=== PATIENT | female | born 1985 | race American Indian/Alaskan Native ===

== ENCOUNTER 2016-06-16 10:55 | Inpatient (IN) | payer MEDICAID ==
--- NOTE | 2016-06-16 12:12 | History and Physical Report ---
History of Present Illness Date of examination: 06/16/16 Date of admission: 06/16/16 12:04 Chief complaint: 30 yo at 38 weeks in active labor History of present illness: Prental care at [facility] since EGA of 6.2 weeks. Co managed with [facility] for history of PTD. GBS positive. Desires tubal ligation. 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 Family/Genetic History: diabetes, hypertension Social history: - Obstetrical History Expected Date of Delivery: 06/28/16 Actual Gestation: 38 Week(s) 2 Day(s) : 6 Para: 3 Hx # Term Pregnancies: 2 Number of Pregnancies: 1 Spontaneous Abortions: 2 Number of Living Children: 3 Medications and Allergies Allergies Allergy/AdvReac Type Severity Reaction Status Date / Time acetaminophen [From Percocet] AdvReac Itching Verified 06/16/16 11:56 oxycodone HCl [From Percocet] AdvReac Itching Verified 06/16/16 11:56 Review of Systems All systems: negative - Vital Signs Vital signs: Vital Signs Pulse BP Pulse Ox 86 118/66 80 L 06/16/16 11:28 06/16/16 11:28 06/16/16 11:28 Temp Pulse Resp BP Pulse Ox 96 H 118/66 98 06/16/16 12:03 06/16/16 11:28 06/16/16 12:03 - Physical Exam Cardiovascular: Regular rate Lungs: Positive: Normal air movement Abdomen: Positive: soft, normal bowel sounds Genitourinary (Female): Positive: normal external genitalia Vagina: Positive: normal moisture Uterus: Positive: enlarged, normal contour Extremities: Positive: normal Deep Tendon Reflex Grade: Normal +2 - Obstetrical FHR: category 1 Uterine Contraction Monitor Mode: External Cervical Dilatation: 4 Cervical Effacement Percentage: 80 station: -1 Uterine Contraction Pattern: Regular Uterine Tone Measurement Phase: Resting Uterine Contraction Intensity: Moderate Results All other labs normal. Assessment and Plan A: IUP @38.2 weeks with painful uterine contractions Category 1 heart tracing Contraction q2-5 minutes GBS positive P: Routine labor management Continuous monitoring AROM Epidural for pain management Expect vaginal delivery
[2016-06-16] MEDS ORDERED: MINERAL OIL PO PRN (12:23)
[2016-06-16] MEDS ORDERED: ePHEDrine SULFATE IV PRN ×2 (12:23→15:02)
[2016-06-16] MEDS ORDERED: BRETHINE SUB-Q PRN (12:23)
[2016-06-16] MEDS ORDERED: POLYCILLIN/NS 2 GM/100 ML 2 GM/100 ML BAG IV ONE (12:23)
[2016-06-16] MEDS ORDERED: ZOFRAN IV PRN (12:23)
[2016-06-16] MEDS ORDERED: BRETHINE IVP PRN (12:23)
[2016-06-16] MEDS ORDERED: LACTATED RINGERS 1,000 ML IV SCH (13:00)
[2016-06-16] MEDS ORDERED: PITOCin/NS 20 UNIT/1000ML DRIP 20,000 MILLIUNITS/1,000 ML BAG IV SCH (13:00)
[2016-06-16] MEDS ORDERED: PITOCin/NS 30 UNIT/500ML 30,000 MILLIUNITS/500 ML BAG IV SCH ×2 (13:00)
[2016-06-16] MEDS: SUBLIMAZE IV PRN ×2 (13:15→14:30)
[2016-06-16 13:25] LABS: Hematocrit 42.8 % (30.3-42.9); Hemoglobin 13.7 gm/dl (10.1-14.3); Mean Corpuscular HGB Conc 32 % (30-34); Mean Corpuscular Hemoglobin 28 pg (28-32); Mean Corpuscular Volume 86 fl (79-97); Platelet Count 251 K/mm3 (140-440); Red Blood Count 4.95 M/mm3 (3.65-5.03); Red Cell Distribution Width 13.6 % (13.2-15.2); White Blood Count 9.6 K/mm3 (4.5-11.0)
[2016-06-16] MEDS ORDERED: fentaNYL-BUPIV 2 MCG/ML-0.125% 200 MCG/100 ML BAG EPIDURAL ONE (14:38)
--- NOTE | 2016-06-16 15:00 | Progress Note ---
Assessment and Plan A: IUP @38.2 in active labor Comfortable with epidural SVE: 680/-1 Category 1 tracing GBS positive P: Routine care AROM 1445 (moderate amount of brown/bloody fluid with no odor) Continue pitocin augmentation and continuous monitoring GBS prophylaxis Expect Subjective - Subjective Date of service: 06/16/16 Principal diagnosis: Active labor at 38.2 weeks Interval history: Prental care at [facility] since EGA of 6.2 weeks. Co managed with [facility] for history of PTD. GBS positive. Desires tubal ligation. Objective - Vital Signs Vital Signs: Vital Signs - 12hr 06/16/16 06/16/16 06/16/16 11:28 11:29 11:33 Temperature Pulse Rate 86 101 H 101 H Respiratory Rate Blood Pressure 118/66 O2 Sat by Pulse 80 L 81 L 98 Oximetry 06/16/16 06/16/16 06/16/16 11:38 11:43 11:48 Temperature Pulse Rate 96 H 95 H 91 H Respiratory Rate Blood Pressure O2 Sat by Pulse 98 97 96 Oximetry 06/16/16 06/16/16 06/16/16 11:53 11:58 12:03 Temperature Pulse Rate 111 H 101 H 96 H Respiratory Rate Blood Pressure O2 Sat by Pulse 96 98 98 Oximetry 06/16/16 06/16/16 06/16/16 12:08 12:09 13:22 Temperature Pulse Rate 93 H 93 H 104 H Respiratory Rate Blood Pressure 119/69 O2 Sat by Pulse 98 86 Oximetry 06/16/16 06/16/16 06/16/16 13:23 14:30 14:36 Temperature 99.9 F H Pulse Rate 105 H 112 H Respiratory 16 Rate Blood Pressure O2 Sat by Pulse 92 87 Oximetry 06/16/16 06/16/16 14:45 14:46 Temperature Pulse Rate 103 H 100 H Respiratory Rate Blood Pressure 92/52 94/53 O2 Sat by Pulse Oximetry - Exam Cardiovascular: Regular rate Lungs: Normal air movement Abdomen: Present: soft FHR: category 1 FHR comments: 130s Uterine Contraction Monitor Mode: External Cervical Dilatation: 6 Cervical Effacement Percentage: 80 station: -1 Uterine Contraction Frequency (min): q2-3 Uterine Contraction Pattern: Regular Uterine Tone Measurement Phase: Resting Uterine Contraction Intensity: Strong/Firm Deep Tendon Reflex Grade: Normal +2 - Labs Labs: Laboratory Results - last 24 hr 06/16/16 06/16/16 13:00 13:00 WBC 9.6 RBC 4.95 Hgb 13.7 Hct 42.8 MCV 86 MCH 28 MCHC 32 RDW 13.6 Plt Count 251 Blood Type O POSITIVE Antibody Screen Negative
[2016-06-16] MEDS ORDERED: NARCAN 2 MG/2 ML IV PRN (15:02)
--- NOTE | 2016-06-16 15:02 | Anesthesia Consultation ---
Anesthesia Consult and Med Hx Date of service: 06/16/16 - Airway Anesthetic Teeth Evaluation: Good ROM Head & Neck: Adequate Mental/Hyoid Distance: Adequate Intubation Access Assessment: Probably Good - Pre-Operative Health Status ASA Pre-Surgery Classification: ASA2, Emergency Proposed Anesthetic Plan: Epidural, Spinal - Pulmonary Hx Asthma: No COPD: No Hx Pneumonia: No - Cardiovascular System Hx Hypertension: No - Central Nervous System Hx Seizures: No Hx Psychiatric Problems: No - Endocrine Hx Renal Disease: No Hx End Stage Renal Disease: No Hx Hypothyroidism: No Hx Hyperthyroidism: No - Hematic Hx Anemia: No Hx Sickle Cell Disease: No - Other Systems Hx Alcohol Use: No
[2016-06-16] MEDS ORDERED: fentaNYL-BUPIV 2 MCG/ML-0.125% 2 MCG/1 ML BAG EPIDURAL SCH (16:00)
[2016-06-16] MEDS ORDERED: BENADRYL PO PRN (16:19)
[2016-06-16] MEDS ORDERED: MILK OF MAGNESIA PO PRN (16:19)
[2016-06-16] MEDS ORDERED: TUCKS PAD TP PRN (16:19)
[2016-06-16] MEDS ORDERED: DERMOPLAST TP PRN (16:19)
[2016-06-16] MEDS ORDERED: DULCOLAX PR PRN (16:19)
[2016-06-16] MEDS ORDERED: LANSINOH TP PRN (16:19)
[2016-06-16] MEDS ORDERED: PHENERGAN PO PRN (16:19)
[2016-06-16] MEDS ORDERED: POLYCILLIN/NS 1 GM/50 ML 1 GM/50 ML BAG IV SCH (16:25)
[2016-06-16] MEDS ORDERED: SODIUM CHLORIDE FLUSH SYRINGE 10 ML IV NR (17:00)
--- NOTE | 2016-06-16 17:00 | Procedure Note ---
OB Delivery Note - Delivery Date of Delivery: 06/16/16 (1614) Surgeon: LENNY SALGADO Estimated blood loss: 300cc - Vaginal Delivery position: OP Intrapartum events: none Delivery induction: none Delivery augmentation: rupture of membranes, pitocin Delivery monitor: external FHT, external uterine Route of delivery: Delivery placenta: manual, uterine exploration Delivery cord: nuchal cord, 3 umbilical vessels Delivery laceration: none Anesthesia: epidural Delivery comments: Baby girl Walker was delivered direct OP on 06/16/16 @ 1614 pm over an intact perineum with nuchal cord x 1. Baby responded well to drying and stimulation and was placed on mom's chest. Cord was clamped at 4 minutes of life and cut by FOB. Placenta was manually removed after almost 30 minutes in several pieces. Calcifications noted. Uterus was manually explored for fragments. Fundus firm and below midline with minimal bleeding. EBL 300cc. Mom and baby were bonding and doing well. - Infant A at 1 minute: 8 at 5 minutes: 9 Infant Gender: Female
[2016-06-16] MEDS: MOTRIN PO SCH ×2 (19:27→23:00)
[2016-06-16] MEDS: NORCO 5/325 PO PRN (21:35)
[2016-06-17 03:23] LABS: Hematocrit 35.9 % (30.3-42.9); Hemoglobin 11.6 gm/dl (10.1-14.3)
[2016-06-17] MEDS: MOTRIN PO SCH ×4 (06:22→23:03)
[2016-06-17] MEDS: NORCO 5/325 PO PRN ×5 (06:22→23:03)
--- NOTE | 2016-06-17 09:05 | Progress Note ---
Assessment and Plan A: PPD 1 after and manually removed placenta Pain not well controlled well Voiding, eating, ambulating well P: Routine care Ultrasound of uterus to r/o retained placenta Plan for d/c tomorrow if patient tolerates. Subjective - Subjective Date of service: 06/17/16 Principal diagnosis: PPD #1 Interval history: Prental care at [facility] since EGA of 6.2 weeks. Co managed with [facility] for history of PTD. GBS positive. Desires tubal ligation. Patient reports: appetite normal, voiding normally, pain poorly controlled ( Complaints of abdominal pain 10/), ambulating normally [place]: doing well Objective - Vital Signs Latest vital signs: Vital Signs Temp Pulse Pulse Resp BP BP Pulse Ox 06/17/16 07:40 98.7 F 88 20 104/54 06/17/16 06:22 18 06/17/16 04:30 98.3 F 97 H 20 109/69 06/17/16 00:20 98.5 F 94 H 18 123/61 06/16/16 21:35 18 06/16/16 18:20 98.1 F 88 18 120/59 06/16/16 18:01 82 114/68 06/16/16 17:46 99 H 117/78 06/16/16 17:31 90 114/75 06/16/16 17:16 98 H 119/81 06/16/16 17:01 106 H 116/76 06/16/16 17:00 16 06/16/16 16:46 111 H 109/56 06/16/16 15:43 104 H 92 06/16/16 15:38 108 H 87 06/16/16 15:33 104 H 136/92 80 L 06/16/16 15:24 119 H 86 06/16/16 15:23 60 L 06/16/16 15:19 109 H 83 L 06/16/16 15:16 26 L 06/16/16 15:14 106 H 87 06/16/16 15:09 100 H 87 06/16/16 15:04 89 86 06/16/16 14:59 101 H 114/63 87 06/16/16 14:46 100 H 94/53 06/16/16 14:45 103 H 92/52 06/16/16 14:36 112 H 87 06/16/16 14:30 105 H 92 06/16/16 13:23 99.9 F H 16 06/16/16 13:22 104 H 119/69 06/16/16 12:09 93 H 86 06/16/16 12:08 93 H 98 06/16/16 12:03 96 H 98 06/16/16 11:58 101 H 98 06/16/16 11:53 111 H 96 06/16/16 11:48 91 H 96 06/16/16 11:43 95 H 97 06/16/16 11:38 96 H 98 06/16/16 11:33 101 H 98 06/16/16 11:29 101 H 81 L 06/16/16 11:28 86 118/66 80 L Intake and Output 06/16/16 06/17/16 06/17/16 22:59 06:59 14:59 Intake Total 860 485 Output Total 1150 Balance -290 485 Intake: IV 500 125 PITOCin/NS 20 UNIT/1000ML 500 125 DRIP 20,000 milliunits In 1,000 ml @ 125 mls/hr IV DIRECT KELBY Rx#: [id number] Oral 120 240 Intake, Free Water 240 120 Output: Urine 1150 Indwelling Catheter 400 Void 750 Other: Total, Intake Amount 120 240 Total, Output Amount 500 # Voids Void 1 1 Estimated Blood Loss 300 - Exam Cardiovascular: Present: Regular rate Lungs: Present: Normal air movement Abdomen: Present: soft, normal bowel sounds Vulva: both: normal (lochia minimal) Uterus: Present: firm, tenderness, fundal height above umbilicus Extremities: Present: normal Deep Tendon Reflex Grade: Normal +2
--- NOTE | 2016-06-17 09:34 | Progress Note ---
Subjective Date of service: 06/17/16 Principal diagnosis: PPD #1 Interval history: 1st day after normal vaginal delivery Patient is in the bed, comfortable. Pain is well controlled with pain meds. Ambulated well. No residual neurological deficit. No anesthesia complications Objective - Constitutional Vitals: Vital Signs - 12hr 06/16/16 06/17/16 06/17/16 21:35 00:20 04:30 Temperature 98.5 F 98.3 F Pulse Rate [ 94 H 97 H Right Radial] Respiratory 18 18 20 Rate Blood Pressure 123/61 109/69 [Right Arm] 06/17/16 06/17/16 06:22 07:40 Temperature 98.7 F Pulse Rate [ 88 Right Radial] Respiratory 18 20 Rate Blood Pressure 104/54 [Right Arm] - Labs CBC & Chem 7: 06/17/16 03:10
--- NOTE | 2016-06-17 15:32 | Ultrasound Report ---
ULTRASOUND PELVIC COMPLETE ULTRASOUND TRANSVAGINAL HISTORY: Vaginal bleeding, evaluate for retained products of conception. TECHNIQUE: Transabdominal and transvaginal ultrasound with color and spectral doppler interrogation. The uterus is markedly enlarged measuring 23 x 8 x 13 cm. No uterine mass is appreciated. The endometrial stripe is poorly visualized on this exam. The endometrial stripe appears to measure between 1.3 and 2.7 cm. There is a small amount of endometrial fluid. Retained products of conception cannot be excluded. No findings consistent with endometritis. The right ovary measures 2.7 x 1.9 x 1.7 cm. The left ovary measures 3.4 x 1.9 x 3.3 cm. No adnexal cyst or mass. No pelvic fluid collection. IMPRESSION: Thickened endometrium as detailed above. Retained products cannot be excluded.
[2016-06-18] MEDS: NORCO 5/325 PO PRN ×2 (05:31→10:25)
[2016-06-18] MEDS: MOTRIN PO SCH ×2 (05:31→12:15)
--- NOTE | 2016-06-18 09:12 | Progress Note ---
Assessment and Plan A: PPD2 s/p with manually removed placenta Pain well controlled well P: Routine care D/C home today Depo before discharge Subjective - Subjective Date of service: 06/18/16 Principal diagnosis: PPD #2 Interval history: Prental care at [facility] since EGA of 6.2 weeks. Co managed with [facility] for history of PTD. GBS positive. Desires tubal ligation. Patient reports: appetite normal, voiding normally, pain well controlled : doing well Objective - Vital Signs Latest vital signs: Vital Signs Temp Pulse Resp BP 06/18/16 07:35 98.3 F 84 20 110/74 06/18/16 00:00 98.9 F 76 20 122/73 06/17/16 16:07 98.2 F 88 20 130/90 Intake and Output 06/17/16 06/18/16 06/18/16 22:59 06:59 14:59 Intake Total 480 Balance 480 Intake: Oral 480 Other: Total, Intake Amount 240 # Voids Void 1 1 - Exam Cardiovascular: Present: Regular rate Lungs: Present: Normal air movement Abdomen: Present: soft, normal bowel sounds Uterus: Present: normal, firm, fundal height at umbilicus Extremities: Present: normal Deep Tendon Reflex Grade: Normal +2
--- NOTE | 2016-06-18 09:50 | Discharge Summary ---
Providers - Providers Date of Admission: 06/16/16 12:04 Date of discharge: 06/18/16 Attending physician: KAL BURTON MD Primary care physician: KAL BURTON MD Hospitalization Reason for admission: active labor Delivery: Procedure details: Manual extraction of placenta Laceration: none complications: none Discharge diagnosis: IUP at term delivered baby: female Hospital course: US for pain with increased fundal height. Pain resolved. Condition at discharge: Good Disposition: DISCHARGED TO HOME OR SELFCARE Plan - Provider Discharge Summary Activity: routine, no sex for 6 weeks, no heavy lifting 4 weeks, no strenuous exercise Diet: routine Instructions: routine Additional instructions: [] Smoking cessation referral if applicable(refer to patient education folder for contact #) [] Refer to [facility]'s [facility] Booklet Call your doctor immediately for: * Fever > 100.5 * Heavy vaginal bleeding ( >1 pad per hour) * Severe persistent headache * Shortness of breath * Reddened, hot, painful area to leg or breast * Drainage or odor from incision. * Keep incision clean and dry at all times and follow doctor's instructions regarding bathing/showering - Follow up plan Follow up: [facility] [Provider Group] - 6 Weeks
[2016-06-18] MEDS ORDERED: DEPO-PROVERA (CONTRACEPTION) IM ONE (11:00)
[2016-06-18 17:39] VITALS: BP 118/74
== END 2016-06-18 17:10 | disposition home or self-care (01) | DRG 775 ==
LOC: TRG 10:55 → LD 12:04 → OB 18:08
PROVIDERS: ADMIT Obstetrics & Gynecology; ATTEND Obstetrics & Gynecology
PROC: 10E0XZZ Delivery of Products of Conception, External Approach (ICD-10-PCS; principal; 2016-06-16)
PROC: 10907ZC Drainage of Amniotic Fluid, Therapeutic from Products of Conception, Via Natural or Artificial Opening (ICD-10-PCS; 2016-06-16)
PROC: 00HU33Z Insertion of Infusion Device into Spinal Canal, Percutaneous Approach (ICD-10-PCS; 2016-06-16)
PROC: 3E0R3CZ (ICD-10-PCS; 2016-06-16)
DX: O69.81X0 Labor and delivery complicated by cord around neck, without compression, not applicable or unspecified (principal); O99.824 Streptococcus B carrier state complicating childbirth; Z88.8 Allergy status to other drugs, medicaments and biological substances; Z83.3 Family history of diabetes mellitus; Z82.49 Family history of ischemic heart disease and other diseases of the circulatory system; Z37.0 Single live birth; Z3A.38 38 weeks gestation of pregnancy
CPT/HCPCS: 36415; 76830; 76856; 85014; 85018; 85027; 86850; 86900; 86901; 88307; 99211; G0463; J0290; J1050; J2590; J3010; J7120

== ENCOUNTER 2019-10-25 10:06 | Emergency (ER) | payer MEDICAID ==
--- NOTE | 2019-10-25 11:46 | Event Note ---
ED Screening Note Date of service: 10/25/19 Time: 11:45 ED Screening Note: 5-week patient presents via referral from [facility] to rule out ectopic Patient is following Dr. Joy who She states she had Cytotec about 1 week ago after finding a tubal on ultrasound, however that the did not abort She states she is feeling dizzy and her pain is worsening This initial assessment/diagnostic orders/clinical plan/treatment(s) is/are subject to change based on patients health status, clinical progression and re- assessment by fellow clinical providers in the ED. Further treatment and workup at subsequent clinical providers discretion. Patient/guardian urged not to elope from the ED as their condition may be serious if not clinically assessed and managed. Initial orders include: Ultrasound Labs
[2019-10-25 11:53] LABS: Bilirubin,Urine NEG (Negative); Blood,Urine LG (Negative); Color,Urine Yellow (Yellow); Mucus,Urine FEW /HPF; Protein,Urine <15 mg/dL mg/dL (Negative); Urobilinogen,Urine < 2.0 mg/dL (<2.0); WBC,Urine < 1.0 /HPF (0.0-6.0)
[2019-10-25 12:04] LABS: Basophils % (Auto) 0.7 % (0.0-1.8); Hemoglobin 12.7 gm/dl (10.1-14.3); Lymphocytes # (Auto) 1.6 K/mm3 (1.2-5.4); Lymphocytes % (Auto) 38.1 % (13.4-35.0); Mean Corpuscular HGB Conc 33 % (30-34); Mean Corpuscular Volume 87 fl (79-97); Monocytes # (Auto) 0.3 K/mm3 (0.0-0.8); Platelet Count 292 K/mm3 (140-440); Red Blood Count 4.38 M/mm3 (3.65-5.03); Red Cell Distribution Width 14.1 % (13.2-15.2)
[2019-10-25 12:39] LABS: Alanine Aminotransferase 14 units/L (7-56); Albumin 4.6 g/dL (3.9-5); BUN/Creatinine Ratio 16; Blood Urea Nitrogen 8 mg/dL (7-17); Calcium 9.7 mg/dL (8.4-10.2)
--- NOTE | 2019-10-25 13:23 | Ultrasound Report ---
OBSTETRICAL ULTRASOUND HISTORY: Adnexal pain. Evaluate for ectopic . FINDINGS: Imaging was formed by transabdominally and endovaginally. The uterus measures 7.3 x 3.7 x 5.8 cm. Endometrial stripe measures 7 mm. No intrauterine . Right ovary measures 3.5 x 2.4 x 2.8 cm. A small complex lesion measures 1.8 cm. Left ovary measures 3.1 x 2.3 x 1.7 cm. An adjacent echogenic lesion measures 3.4 x 4.4 x 4.5 cm. No gestational sac is i dentified. A small amount of free fluid is noted. IMPRESSION: 1. No intrauterine . 2. Small complex cyst right ovary. 3. Indeterminate left adnexal lesion. This could represent ectopic in the appropriate clini faiza setting. 4. Small amount of free fluid. Signer Name: Loco Craig MD Signed: 10/25/2019 1:18 PM Workstation Name: [id number]
--- NOTE | 2019-10-25 16:44 | Emergency Department Report ---
HPI - General Chief Complaint: Abdominal Pain Time Seen by Provider: 10/25/19 11:39 - HPI HPI: This is a 34-year-old female presents to the emergency department, sent in by [facility], for evaluation of a possible ectopic . Patient has been dealing with some vaginal bleeding and pelvic cramping for the past 2 weeks. She went to [facility] on October 14 and was found to be with a beta hCG of about 1000. She had an ultrasound done that showed concern for an ectopic . The patient was given a dose of methotrexate and discharged home. She had at least 3 other visits to the [facility] emergency department for the same symptoms, along with some lightheadedness/dizziness. Initially her beta-hCG did start to decrease down to about 630 but then recently went back up into the 900s. She went to [facility] this morning and was sent in to the [facility] emergency department for further evaluation. ED Past Medical Hx - Past Medical History Previous Medical History?: No Hx Hypertension: No Hx Congestive Heart Failure: No Hx Diabetes: No Hx Deep Vein Thrombosis: No Hx Renal Disease: No Hx Sickle Cell Disease: No Hx Seizures: No Hx Asthma: No Hx COPD: No Hx HIV: No - Surgical History Past Surgical History?: Yes Additional Surgical History: D and C - Social History Smoking Status: Never Smoker Substance Use Type: None - Medications Home Medications: Home Medications Medication Instructions Recorded Confirmed Last Taken Type HYDROcodone/APAP 5-325 [[place] 1 each PO Q6HR PRN #14 tablet 06/18/16 Unknown Rx 5/325] ED Review of Systems ROS: Stated complaint: ABD PAIN Other details as noted in HPI Comment: All other systems reviewed and negative Constitutional: denies: chills, fever Eyes: denies: eye pain, vision change ENT: denies: ear pain, throat pain Respiratory: denies: cough, shortness of breath Cardiovascular: denies: chest pain, palpitations Gastrointestinal: abdominal pain. denies: vomiting Genitourinary: abnormal menses. denies: dysuria, discharge Musculoskeletal: denies: back pain, arthralgia Neurological: other (Dizziness/lightheadedness). denies: weakness Physical Exam - Physical Exam Vital Signs: Vital Signs 10/25/19 10/25/19 11:39 16:17 Temperature 98.7 F 98.1 F Pulse Rate 88 101 H Respiratory 20 28 H Rate Blood Pressure 127/88 Blood Pressure 130/79 [Right] O2 Sat by Pulse 99 99 Oximetry Physical Exam: GENERAL: The patient is well-developed well-nourished. HENT: Normocephalic. Atraumatic. Patient has moist mucous membranes. EYES: Extraocular motions are intact. NECK: Supple. Trachea is midline. CHEST/LUNGS: Clear to auscultation. There is no respiratory distress noted. HEART/CARDIOVASCULAR: Regular. There is no tachycardia. ABDOMEN: Abdomen is soft, nontender. Patient has normal bowel sounds. There is no abdominal distention. SKIN: Skin is warm and dry. NEURO: The patient is awake, alert, and oriented. The patient is cooperative. Normal speech. MUSCULOSKELETAL: There is no tenderness or deformity. There is no evidence of acute injury. ED Course Vital Signs 10/25/19 10/25/19 11:39 16:17 Temperature 98.7 F 98.1 F Pulse Rate 88 101 H Respiratory 20 28 H Rate Blood Pressure 127/88 Blood Pressure 130/79 [Right] O2 Sat by Pulse 99 99 Oximetry - Consultations Consultation #1: 10/25/19 16:[address] Singh, [facility] PROGRAM CHAIR at [facility], who has asked for the patient to receive another dose of methotrexate. We did discuss the patient's labs, vital signs and ultrasound findings. After the methotrexate, the patient can be discharged home to follow-up in their office on for repeat beta-hCG. ED Medical Decision Making - Lab Data Result diagrams: 10/25/19 11:50 10/25/19 11:50 - Radiology Data Radiology results: report reviewed OBSTETRICAL ULTRASOUND HISTORY: Adnexal pain. Evaluate for ectopic . FINDINGS: Imaging was formed by transabdominally and endovaginally. The uterus measures 7.3 x 3.7 x 5.8 cm. Endometrial stripe measures 7 mm. No intrauterine . Right ovary measures 3.5 x 2.4 x 2.8 cm. A small complex lesion measures 1.8 cm. Left ovary measures 3.1 x 2.3 x 1.7 cm. An adjacent echogenic lesion measures 3.4 x 4.4 x 4.5 cm. No gestational sac is identified. A small amount of free fluid is noted. IMPRESSION: 1. No intrauterine . 2. Small complex cyst right ovary. 3. Indeterminate left adnexal lesion. This could represent ectopic in the appropriate clinical setting. 4. Small amount of free fluid. - Medical Decision Making This patient presents to the emergency department with some continued pelvic cramping and vaginal bleeding and some occasional dizziness. On examination the patient does not have any focal, motor or sensory deficits and her cranial nerves are intact. The abdomen is soft, nondistended and nontoxic in appearance. Patient's labs are mostly unremarkable. No leukocytosis. No urinary tract infection or hematuria. The patient's beta-hCG came back at 883 which is decreased from her most recent visit to [facility]. The ultrasound shows no intrauterine , a small right ovarian cyst, and an indeterminate left adnexal lesion. The patient's INTERIOR DESIGN PROGRAM CHAIR was contacted and we discussed the patient's vital signs, physical examination, labs and ultrasound. He has decided to treat with another dose of methotrexate. He then feels that the patient is safe for discharge home and should follow-up in their office on , 3 days from now. All this was discussed with the patient and she understands and agrees to the plan. However we also discussed the need to return to the closest emergency department immediately with any increased abdominal or pelvic pain, increased vaginal bleeding, development of fever, or with any acute distress. Critical Care Time: No Critical care attestation.: If time is entered above; I have spent that time in minutes in the direct care of this critically ill patient, excluding procedure time. ED Disposition Clinical Impression: Ectopic Qualifiers: Location of ectopic : tubal Intrauterine status: without intrauterine Laterality: left Qualified Code(s): O00.102 - Left tubal without intrauterine Disposition: TO HOME OR SELFCARE Is pt being admited?: No Condition: Stable Instructions: Methotrexate (Injection), Ectopic (ED) Additional Instructions: [facility] wants you to follow-up on morning for repeat blood work. However, you should return to the closest emergency department immediately with any increased abdominal or pelvic pains, increased vaginal bleeding, increased dizziness, development of chest pain or shortness of breath, development of fever, or with any acute distress. Referrals: [facility] [Provider Group] - [facility] Time of Disposition: 17:28
[2019-10-25 17:48] VITALS: BP 109/58
== END 2019-10-25 17:48 | disposition home or self-care (01) ==
LOC: ED 10:06
DX: O00.90 Unspecified ectopic pregnancy without intrauterine pregnancy (principal); Z98.890 Other specified postprocedural states; Z79.899 Other long term (current) drug therapy
CPT/HCPCS: 36415; 76801; 76817; 80053; 81001; 83690; 84702; 85025; 96372; 99284; J9260